=== PATIENT | male | born 1950 | race Caucasian/White ===

== ENCOUNTER 2021-10-14 06:45 | Day surgery (SDC) | payer OTHER ==
[2021-10-12 10:11] VITALS: BMI 29.6
[2021-10-14] MEDS ORDERED: LIDOCAINE HCL/EPINEPHRINE/PF 20 ML VIAL ONE (07:53)
[2021-10-14] MEDS ORDERED: BUPIVACAINE HCL 50 ML ONE ×2 (07:54→09:21)
[2021-10-14] MEDS ORDERED: LIDOCAINE HCL 1%, 10 MG/ML (20ML VIAL) ONE (08:11)
[2021-10-14] MEDS ORDERED: MIDAZOLAM HCL 2 MG/2 ML SINGLE DOSE VIAL ONE ×2 (09:03)
[2021-10-14] MEDS ORDERED: ceFAZolin SODIUM 1 GM VIAL ONE (09:05)
[2021-10-14] MEDS ORDERED: PROPOFOL 20 ML ONE ×3 (09:06→09:53)
[2021-10-14] MEDS ORDERED: oxyCODONE HCL 5 MG TABLET PO PRN (11:39)
[2021-10-14] MEDS ORDERED: oxyCODONE HCL 5 MG TABLET PO ONE (16:10)
[2021-10-14 23:09] VITALS: PULSE 96; TEMP 98.4
[2021-10-15 06:17] VITALS: BP 159/88
== END 2021-10-15 07:10 | disposition home or self-care (01) ==
LOC: FASUSAT 06:45 → FASU 06:45 → FM/S 11:37 → FASUSAT 10-15 07:10
PROVIDERS: ATTEND Orthopaedic Surgery
PROC: 01N40ZZ Release Ulnar Nerve, Open Approach (ICD-10-PCS; principal; 2021-10-14 09:15)
DX: G56.22 Lesion of ulnar nerve, left upper limb (principal)
CPT/HCPCS: 94760